=== PATIENT | female | born 1985 | race Two or more races ===

== ENCOUNTER 2019-06-13 12:55 | Outpatient (CLI) | payer SELFPAY ==
[2019-06-13] MEDS ORDERED: OMNIPAQUE 300 MG/ML, 10ML VIAL ONE (14:26)
== END 2019-06-13 23:59 | disposition home or self-care (01) ==
LOC: RAD 12:55
PROVIDERS: ATTEND Obstetrics & Gynecology
DX: N91.2 Amenorrhea, unspecified (principal)
CPT/HCPCS: 74740; Q9967